=== PATIENT | female | born 1985 | race Caucasian/White ===

== ENCOUNTER 2018-09-29 11:39 | Emergency (ER) | payer MEDICAID ==
[~2018-09-29] VITALS: Ht 172.7 cm; Wt 99.8 kg
[~2018-09-29 11:39] MED LIST: AA/A14DR2 RIGHT EAR; AC500T PO; ACHD5005 PO; AMOX500C2 PO; CALC-127 PO; CEFP500T4 PO; CLIN-81 PO; CYCL10TA45 PO; CYCL10TA9 PO; HYDR-2997 PO; HYDR-3583 PO; HYDR-3720 PO; HYDR-707 PO; HYDR-757 PO; HYDR1TAB PO; IBP200T PO; IBUP-15 PO; METH500T35 PO; MUPI22OI TP; NAPR-243 PO; OMEP-10 PO; ORPH100T PO; OXYC-12 PO; PENI500T PO; PRD20T PO; PRM25T PO; PROP1TAB77 PO; RIZA10TA23 PO; SULF-222 PO; SULF1TAB35 PO; SULF1TAB38 PO; TRAM-21 PO; TRAM50TA2 PO; TRM50T PO; ZLP10T
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
[2018-09-29] MEDS ORDERED: KETOROLAC 60 MG/2 ML VIAL IM ONE (12:15)
--- NOTE | 2018-09-29 13:01 | Diagnostic Imaging Report ---
EXAMINATION: Left ribs, 3 views INDICATION: Traumatic left rib injury. Patient jumped off a fence and landed on the left shoulder and ribs. Left rib pain. COMPARISON: None. FINDINGS: No acute displaced rib fracture is demonstrated. No acute osseous abnormality noted elsewhere. The visualized lungs are clear. IMPRESSION: No evidence of displaced rib fracture. Dictated by: Dictated on workstation # [id number]
--- NOTE | 2018-09-29 13:06 | Diagnostic Imaging Report ---
EXAMINATION: Left shoulder, three views. INDICATION: Traumatic left shoulder injury. Patient jumped off a fence and fell onto the shoulder. Left shoulder pain. COMPARISON: Left shoulder radiographs performed on 12/26/2012. FINDINGS: No fracture or acute osseous abnormality. Bony alignment is maintained. The humeral head is well seated in the glenohumeral joint. The acromioclavicular joint is intact. The visualized left lung is clear. IMPRESSION: No acute fracture or dislocation. Dictated by: Dictated on workstation # [id number]
--- NOTE | 2018-09-29 13:15 | NUR ---
JEFF NOTIFEID THAT PT IS NOT HAVING MUCH RELIEF FROM THE SHOTS.
--- NOTE | 2018-09-29 13:16 | NUR ---
BRUSING NOTED LEFT ARM.
[2018-09-29] MEDS ORDERED: HYDROcodone/APAP 5 MG/325 MG (LORTAB) TAB PO ONE (13:30)
[2018-09-29 13:34] VITALS: BP 134/76
== END 2018-09-29 13:34 | disposition home or self-care (01) ==
LOC: EDUNIT# 11:39 → ER 11:40
DX: S20.212A Contusion of left front wall of thorax, initial encounter (principal); S40.012A Contusion of left shoulder, initial encounter; G43.909 Migraine, unspecified, not intractable, without status migrainosus; F32.9 Major depressive disorder, single episode, unspecified; F17.200 Nicotine dependence, unspecified, uncomplicated; Z90.89 Acquired absence of other organs; Z98.51 Tubal ligation status; Z88.8 Allergy status to other drugs, medicaments and biological substances; W13.8XXA Fall from, out of or through other building or structure, initial encounter; Y93.67 Activity, basketball
CPT/HCPCS: 71100; 73030; 96372